=== PATIENT | male | born 1990 | race Two or more races ===

== ENCOUNTER 2019-12-01 01:25 | Inpatient (IN) | payer SELFPAY ==
[~2019-12-01] VITALS: Ht 172.7 cm; Wt 76.0 kg
[2019-12-01 03:11] LABS: Urine Bacteria NONE SEEN /hpf (None Seen); Urine Blood 1+ /uL (Negative); Urine Hyaline Cast FEW /lpf (0 - 2); Urine Mucus FEW (None Seen); Urine Specific Gravity 1.038 (1.001-1.035); Urine WBC 1 /hpf (0 - 3)
[2019-12-01] MEDS ORDERED: SODIUM CHLORIDE 0.9% 1,000 ML IV ONE (06:55)
[2019-12-01] MEDS ORDERED: SODIUM CHLORIDE 0.9% 500 ML IVB ONE (06:55)
[2019-12-01] MEDS ORDERED: HYDROmorphone HCL 2 MG/ML VL IV ONE (07:00)
[2019-12-01] MEDS ORDERED: metroNIDAZOLE 500MG/100ML 100 ML IV ONE (07:00)
[2019-12-01] MEDS ORDERED: PROMETHAZINE HCL 25 MG/ML 1ML IV PRN ×2 (07:00→12:00)
[2019-12-01] MEDS ORDERED: cefTRIAXone 1GM/50ML D5W 50 ML IV ONE (07:00)
[2019-12-01 10:37] LABS: Basophils # (auto) 0 10 ^3/uL (0-0.2); Basophils % (auto) 0.3 % (0.0-2.0); Eosinophils # (auto) 0 10 ^3/uL (0-0.8); Eosinophils % (auto) 0.3 % (0.0-7.0); Hematocrit 40.8 % (41.0-53.0); Hemoglobin 13.7 g/dL (13.5-17.5); Lymphocytes # (auto) 1.2 10 ^3/uL (0.4-5.4); Lymphocytes % (auto) 12.2 % (10.0-50.0); Mean Corpuscular Hemoglobin 29.7 pg (28.0-32.0); Mean Corpuscular Hgb Conc. 33.7 g/dL (32.0-36.0); Mean Corpuscular Volume 88.2 fL (80.0-100.0); Monocytes # (auto) 0.6 10 ^3/uL (0-1.3); Monocytes % (auto) 6.4 % (0.0-12.0); Neutrophils # (auto) 8.2 10 ^3/uL (1.6-8.6); Neutrophils % (auto) 80.8 % (37.0-80.0); Platelet Count (auto) 173 10^3/uL (140-450); Red Blood Cells 4.62 10^6/uL (4.5-5.90); Red Cell Distribution Width 13.1 % (11.8-14.3); White Blood Cell 10.1 10^3/uL (4.4-10.8)
[2019-12-01 10:52] LABS: INR 1.22 (0.9-1.15)
[2019-12-01 11:01] LABS: Albumin 3.8 g/dL (3.4-5.0); Calcium 8.4 mg/dL (8.5-10.1); Potassium 3.5 mmol/L (3.5-5.1)
[2019-12-01 11:04] LABS: BUN/Creatinine Ratio 16.9; Bilirubin, Total 1.1 mg/dL (0.2-1.0); Total Protein 6.4 g/dL (6.4-8.2)
[2019-12-01] MEDS ORDERED: TEMAZEPAM 15 MG CAP PO PRN (12:00)
[2019-12-01] MEDS ORDERED: FAMOTIDINE (10MG/ML) 2ML VL IV SCH (12:00)
[2019-12-01] MEDS ORDERED: ACETAMINOPHEN 500 MG TAB PO PRN (12:00)
[2019-12-01] MEDS ORDERED: MORPHINE SULF INJ 2 MG/ML SYRINGE 1ML IV PRN ×2 (12:00)
--- NOTE | 2019-12-01 12:42 | NUR ---
Med surg admit from ER LÁZAROELIAS admitted to med surg unit after SBAR received. Patient oriented to JACKIE INFANTE RN primary RN, unit, room, bed, and unit policies regarding patient care. Patient is awake, alert and oriented x4. Patient denies pain at this time. Patient is on room air, respirations even and unlabored. Reviewed plan of care with patient, patient verbalized understanding. Patient is NPO at this time. Bed in low and locked position, call light within reach. Will continue to monitor Q1 hour and PRN.
[2019-12-01] MEDS: SODIUM CHLORIDE 0.9% 1,000 ML IV SCH ×2 (14:03→22:10)
--- NOTE | 2019-12-01 14:25 | NUR ---
Ultra sound tech at bedside
--- NOTE | 2019-12-01 14:28 | NUR ---
Dr. De Leon at bedside Discussing plan of care with patient. Will continue to monitor Q1 hour and PRN.
[2019-12-01] MEDS: metroNIDAZOLE 500MG/100ML 100 ML IV SCH ×2 (14:36→22:11)
--- NOTE | 2019-12-01 15:05 | NUR ---
Covid swab collected Swab collected by this RN and walked to lab.
--- NOTE | 2019-12-01 18:20 | NUR ---
Patient taken down to OR
[2019-12-01] MEDS: PANTOPRAZOLE 40 MG/10 ML VIAL INJ IV SCH ×2 (18:26→22:11)
[2019-12-01] MEDS ORDERED: MIDAZOLAM HCL 1MG/1ML-2 ML VIAL ONE (19:05)
[2019-12-01] MEDS ORDERED: fentaNYL CITRATE 100 MCG/2 ML VL ONE (19:05)
--- NOTE | 2019-12-01 19:05 | NUR ---
Closing Note Report given to squad boss RN. Patient down in OR.
--- NOTE | 2019-12-01 19:05 | NUR ---
Received report from the Day Shift RN. Nuñez. Pt. is in the OR with ongoing surgery of the Lap. Appendectomy.
[2019-12-01] MEDS ORDERED: SUCCINYLCHOLINE CHLORIDE 20 MG/ML 10ML VIAL IV ONE (19:06)
[2019-12-01] MEDS ORDERED: ceFAZolin 1GM/50ML 50 ML IV ONE (19:15)
[2019-12-01] MEDS ORDERED: ROCURONIUM 10MG/ML 10ML VIAL IV ONE (19:18)
[2019-12-01] MEDS ORDERED: BUPIVACAINE 0.25% INJ 50ML VIAL ONE (19:22)
[2019-12-01] MEDS ORDERED: ONDANSETRON HCL 4 MG/2 ML VIAL ONE (20:10)
[2019-12-01] MEDS ORDERED: GLYCOPYRROLATE 0.2 MG/ML 1ML VIAL ONE ×2 (20:10→20:13)
[2019-12-01] MEDS ORDERED: NEOSTIGMINE 1 MG/ML INJ (10mg/10ML VIAL) ONE (20:10)
[2019-12-01] MEDS ORDERED: METOCLOPRAMIDE HCL 5MG/ml INJ 2ml VIAL IV PRN (20:30)
[2019-12-01] MEDS: HYDROmorphone HCL 2 MG/ML VL IV PRN ×4 (20:42→21:23)
--- NOTE | 2019-12-01 21:15 | NUR ---
supreme court judge. called the Floor and notified assigned RN. Daniels to pick or get the pt. from Recovery Room to the [facility].
--- NOTE | 2019-12-01 21:40 | NUR ---
Pt. heart rate @ 60's to 70's per minute with 02 sat. @ 98 % in Room Air upon arrival to the Floor.
--- NOTE | 2019-12-01 21:40 | NUR ---
Pt. was wheeled back to Floor by assigned RN. Daniels with the help of JASMIN Telles. Pt. looks sleepy and tired but oriented x 4 when awakened. Pt. restarted on NS @ 100 ml./hr. to the LAC G # 20. Pt. received IV pain reliever from the Recovery Room and is calm and comfortable @ this time. Pt. denies pain when when assessed. Pt. lying flat and keep safe and prototype engineer manager bed. Instructed pt. that call-light within reach. Pt. verbalized understanding.
[2019-12-01 22:00] VITALS: BP 117/72
--- NOTE | 2019-12-01 22:11 | NUR ---
Meds. as scheduled given/administered. Pt. given explanation of the use or mechanism of actions of these meds. Pt. verbalized understanding.
--- NOTE | 2019-12-01 22:30 | NUR ---
Assigned RN. Daniels gave a return call to Kay, pt. family member and was able to talk to Kay about pt. condition s/p surgery of the Lap. Appendectomy. Kay was notified that pt. is okay and resting @ this time. Kay asked when the pt. can go home and Kay was notified that pt. will be encouraged to ambulate every 4 hrs. as pt . will tolerate it and possible be discharged home tomorrow or the Day after per Doctor's discretion.
--- NOTE | 2019-12-02 | NUR ---
Pt. is sleeping and quiet. keep pt. safe and anthropology instructor bed.
--- NOTE | 2019-12-02 01:00 | NUR ---
Pt. was able to ambulate to the BR and back to his bed without difficulty. Pt. returned to the bed and fall asleep. Awaken and sleeping intermittently.
--- NOTE | 2019-12-02 04:00 | NUR ---
Pt. is sleeping undisturbed. HL PIV.
[2019-12-02 05:00] VITALS: BP 121/63
[2019-12-02] MEDS: metroNIDAZOLE 500MG/100ML 100 ML IV SCH ×2 (06:01→14:30)
--- NOTE | 2019-12-02 06:05 | NUR ---
Med. as scheduled given.
[2019-12-02 07:42] LABS: Basophils # (auto) 0 10 ^3/uL (0-0.2); Basophils % (auto) 0.2 % (0.0-2.0); Eosinophils # (auto) 0 10 ^3/uL (0-0.8); Eosinophils % (auto) 0.1 % (0.0-7.0); Hematocrit 41.4 % (41.0-53.0); Lymphocytes # (auto) 0.7 10 ^3/uL (0.4-5.4); Lymphocytes % (auto) 9.4 % (10.0-50.0); Mean Corpuscular Hgb Conc. 33.9 g/dL (32.0-36.0); Mean Corpuscular Volume 88.3 fL (80.0-100.0); Monocytes # (auto) 0.4 10 ^3/uL (0-1.3); Monocytes % (auto) 5.2 % (0.0-12.0); Neutrophils # (auto) 6.6 10 ^3/uL (1.6-8.6); Neutrophils % (auto) 85.1 % (37.0-80.0); Nucleated Red Blood Cells % 0.1 %; Platelet Count (auto) 183 10^3/uL (140-450); Red Blood Cells 4.69 10^6/uL (4.5-5.90); Red Cell Distribution Width 13.2 % (11.8-14.3); White Blood Cell 7.7 10^3/uL (4.4-10.8)
--- NOTE | 2019-12-02 07:50 | NUR ---
Opening Note Received report from third shift lieutenant RN. Patient is resting in bed, no signs or symptoms of distress noted at this time, patient easy to wake by calling name. Patient is s/p laparoscopic appendectomy. Abdominal incisions clean, dry and intact. Patient denies pain at this time. Reviewed plan of care with patient. Bed in low and locked position, call light within reach. Will continue to monitor Q1 hour and PRN.
[2019-12-02 08:08] LABS: Albumin 3.7 g/dL (3.4-5.0); Calcium 8.1 mg/dL (8.5-10.1); Potassium 3.6 mmol/L (3.5-5.1)
[2019-12-02 08:12] LABS: BUN/Creatinine Ratio 9.6; Total Protein 6.5 g/dL (6.4-8.2)
[2019-12-02] MEDS ORDERED: cefTRIAXone 1GM/50ML D5W 50 ML IV SCH (09:00)
[2019-12-02] MEDS: SODIUM CHLORIDE 0.9% 1,000 ML IV SCH ×2 (09:02→17:57)
[2019-12-02] MEDS: PANTOPRAZOLE 40 MG/10 ML VIAL INJ IV SCH (09:02)
[2019-12-02 09:14] VITALS: BP 111/59
--- NOTE | 2019-12-02 10:20 | NUR ---
Dr. Womack at nurse station MD updated this RN on plan of care. New order received to advance the patients diet. Will implement new orders. Will continue to monitor Q1 hour and PRN.
[2019-12-02 13:00] VITALS: BP 118/64
[2019-12-02 16:17] VITALS: BP 111/59
[2019-12-02 16:59] VITALS: BP 125/73
--- NOTE | 2019-12-02 18:25 | NUR ---
DISCHARGE Discharge instructions given as ordered. Encourage to follow up with PMD as instructed. All questions and concerns addressed. Patient verbalized understanding. Medication reconciliation form completed and copy given to patient. IV removed with catheter intact, pressure dressing applied. Patient taken to vehicle via wheelchair with all personal belongings, accompanied by staff member. No signs or symptoms of distress noted at this time.
== END 2019-12-02 18:25 | disposition home or self-care (01) | DRG 982 ==
LOC: ER 01:25 → OVERFLOW 01:26 → WEST WING 12:42
PROVIDERS: ADMIT Internal Medicine; ATTEND Internal Medicine
PROC: 0DTJ4ZZ Resection of Appendix, Percutaneous Endoscopic Approach (ICD-10-PCS; principal; 2019-12-01 19:33)
DX: U07.1 COVID-19 (principal); K35.80 Unspecified acute appendicitis
CPT/HCPCS: 36415; 71045; 74176; 76705; 80053; 81001; 83690; 83735; 85025; 85610; 85730; 86850; 86900; 86901; 87426; 96365; 96368; 96375; C9113; G0378; J0330; J0690; J0696; J2250; J2405; J3490